=== PATIENT | female | born 1950 | race Caucasian/White ===

== ENCOUNTER 2016-12-05 08:44 | Day surgery (SDC) | payer BC ==
--- NOTE | ~2016-12-05 | EGD ---
EGD REPORT [facility] [address] [place] [address] NAME: SHANNAN PÉREZ : 52 STATUS : REG [facility] [place] PAT#: [id number] AGE: 66 ADM/REG DATE : 12/05/16 MR#: [id number] REPORT SERV DATE: 12/05/16 DICTATED BY: SAVANNAH BAILON DATE: 12/05/16 REPORT STATUS : Draft [facility]: [facility] DATE: 12/05/16 [facility] Patient Name: Shannan Pérez Date of : 1950 Attending MD: SAVANNAH BAILON MD Procedure Date No Time: 12/05/2016 Procedure: Colonoscopy Indications: Colon cancer screening in patient at increased risk: Family history of colon polyps Referring MD: FLORA GALINDO Medicines: as per anesthesia Complications: No immediate complications. Procedure: Pre-Anesthesia Assessment: - ASA Grade Assessment: III - A patient with severe systemic disease. After I obtained informed consent, the scope was passed under direct vision. Throughout the procedure, the patient's blood pressure, pulse, and oxygen saturations were monitored continuously. The PCF [id number] was introduced through the anus and advanced to the cecum, identified by appendiceal orifice and ileocecal valve. The colonoscopy was performed without difficulty. The patient tolerated the procedure. The quality of the bowel preparation was fair. Findings: The perianal and digital rectal examinations were normal. There was a small lipoma, in the ascending colon. A sessile polyp was found in the transverse colon. The polyp was 3 mm in size. The polyp was removed with a cold biopsy forceps. Resection and retrieval were complete. A few small and large-mouthed diverticula were found in the sigmoid colon and in the descending colon. Internal hemorrhoids were found during endoscopy and were mild. Impression: - Small lipoma in the ascending colon. - One 3 mm polyp in the transverse colon. Resected and retrieved. - Diverticulosis in the sigmoid colon and in the descending colon. - Internal hemorrhoids. Recommendation: - Await pathology results. - Repeat colonoscopy for surveillance based on pathology results. EGD REPORT [address] [address] NAME: SHANNAN PÉREZ : [birth year] STATUS : REG [facility] [place] PAT#: [id number] AGE: 66 ADM/REG DATE : 12/05/16 MR#: [id number] REPORT SERV DATE: 12/05/16 DICTATED BY: SAVANNAH BAILON. DATE: 12/05/16 REPORT STATUS : Draft TRANSCRIBED BY: [employer] DATE: 12/05/16 Procedure Code(s): --- Professional --- 72148, Colonoscopy, flexible, proximal to splenic flexure; with biopsy, single or multiple Diagnosis Code(s): --- Professional --- D17.5, Benign lipomatous neoplasm of intra-abdominal organs D12.3, Benign neoplasm of transverse colon K64.8, Other hemorrhoids K57.30, Diverticulosis of large intestine without perforation or abscess without bleeding Z12.11, Encounter for screening for malignant neoplasm of colon Z83.71, Family history of colonic polyps CPT copyright 2013 [employer]. All rights reserved. The codes documented in this report are preliminary and upon butadiene compressor operator review may be revised to meet current compliance requirements. SAVANNAH BAILON MD 12/05/2016 10:14 AM This report has been signed electronically. Number of Addenda: 0 Note Initiated On: 12/05/2016 9:43 AM [address] [id number]
[~2016-12-05 08:44] MED LIST: ASAB PO; CALCIUM + D OTC PO; DULERA 100 MCG/13 GM INH; GLUMETZA1000 MG PO; HYDROCHLOROT25 MG PO; LANTUSCART SC; LEVOTHYROXIN175 MCG PO; LIPITOR40 PO; LISINOPRIL40 MG PO; MAGNESIUM PO; NOVOLOG SC; POTASSIUM OTC PO; PROAIR HFA INH
== END 2016-12-05 23:59 | disposition home or self-care (01) ==
LOC: DMU 08:44
PROVIDERS: Internal Medicine Gastroenterology
PROC: 0DBL8ZZ Excision of Transverse Colon, Via Natural or Artificial Opening Endoscopic (ICD-10-PCS; principal; 2016-12-05 10:00)
DX: Z12.11 Encounter for screening for malignant neoplasm of colon (principal); D12.3 Benign neoplasm of transverse colon; D17.5 Benign lipomatous neoplasm of intra-abdominal organs; K64.8 Other hemorrhoids; K57.30 Diverticulosis of large intestine without perforation or abscess without bleeding; G43.909 Migraine, unspecified, not intractable, without status migrainosus; I10 Essential (primary) hypertension; J45.909 Unspecified asthma, uncomplicated; G47.33 Obstructive sleep apnea (adult) (pediatric); E03.9 Hypothyroidism, unspecified; E11.9 Type 2 diabetes mellitus without complications; M17.0 Bilateral primary osteoarthritis of knee; M18.9 Osteoarthritis of first carpometacarpal joint, unspecified; H26.9 Unspecified cataract; Z83.71 Family history of colonic polyps; Z91.041 Radiographic dye allergy status; Z90.710 Acquired absence of both cervix and uterus; Z91.013 Allergy to seafood; Z79.899 Other long term (current) drug therapy; Z79.4 Long term (current) use of insulin; Z79.82 Long term (current) use of aspirin; Z79.84 Long term (current) use of oral hypoglycemic drugs
CPT/HCPCS: 82962; 88305